=== PATIENT | female | born 1945 | race Caucasian/White ===

== ENCOUNTER 2020-07-15 19:56 | Emergency (ER) | payer MEDICARE, OTHER ==
[~2020-07-15] VITALS: Ht 160 cm; Wt 81.6 kg
[2020-07-15 20:00] VITALS: BP_SYST 149
--- NOTE | 2020-07-15 20:30 | NUR ---
Patient to ER bed to gown for evaluation. Side rails up.
--- NOTE | 2020-07-15 20:35 | NUR ---
PT PRESENTS FROM HOME WITH C/O RIGHT LEG PAIN THAT STARTED WEDNESDAY AFTERNOON WHILE WALKING WITH HER DAUGHTER. REPORTS THAT THE PAIN IS ON THE BACK OF HER UPPER LEG AND HURTS WHILE WALKING. DENIES ANY PRECIPITATING EVENT, TRAUMA. NO REDNESS, SWELLING OR WARMTH NOTED. REPORTS HX OF ANXIETY. Martha MARIANO/S DEON Addendum: 07/15/20 at 2046 by HEATHER PT PRESENTS FROM HOME WITH C/O LEFT LEG PAIN THAT STARTED WEDNESDAY AFTERNOON WHILE WALKING WITH HER DAUGHTER. REPORTS THAT THE PAIN IS ON THE BACK OF HER UPPER LEG AND HURTS WHILE WALKING. DENIES ANY PRECIPITATING EVENT, TRAUMA. NO REDNESS, SWELLING OR WARMTH NOTED. REPORTS HX OF ANXIETY. GARCÍA V/S DEON
--- NOTE | 2020-07-15 21:04 | NUR ---
ER DR. CRAIN AT THE BEDSIDE EVALUATING PT
[2020-07-15 22:24] VITALS: BP_SYST 132
--- NOTE | 2020-07-15 22:24 | NUR ---
Patient given written and verbal discharge instructions and verbalizes understanding. ER MD discussed with patient the results and treatment provided. Patient in stable condition. ID arm band removed. Rx of MOTRIN given. Patient educated on pain management and to follow up with PMD. Pain Scale 0/10. Opportunity for questions provided and answered. Medication side effect fact sheet provided.
== END 2020-07-15 22:24 | disposition home or self-care (01) ==
LOC: SED 19:56
DX: S83.412A Sprain of medial collateral ligament of left knee, initial encounter (principal); I10 Essential (primary) hypertension; E78.5 Hyperlipidemia, unspecified; E11.9 Type 2 diabetes mellitus without complications; X50.1XXA Overexertion from prolonged static or awkward postures, initial encounter; Y93.89 Activity, other specified; Y92.89 Other specified places as the place of occurrence of the external cause; Y99.8 Other external cause status
CPT/HCPCS: 73564; 99283

== ENCOUNTER 2022-08-01 23:29 | Emergency (ER) | payer MEDICARE ==
[~2022-08-01] VITALS: Ht 160 cm; Wt 81.6 kg
[2022-08-02 00:30] VITALS: BP_SYST 171
--- NOTE | 2022-08-02 00:30 | NUR ---
Placed to ER bed 05. Report given to GRICELDA Escalona.
--- NOTE | 2022-08-02 00:44 | NUR ---
Bladder scan done and it showed about 350cc of urine pt is retaining.
--- NOTE | 2022-08-02 02:30 | NUR ---
Dr. Forrester at bedside examining pt.
--- NOTE | 2022-08-02 03:15 | NUR ---
Pt to CT via [facility].
--- NOTE | 2022-08-02 03:29 | NUR ---
Pt returned from CT.
--- NOTE | 2022-08-02 03:30 | NUR ---
body technician/painter at bedside.
--- NOTE | 2022-08-02 03:43 | NUR ---
# FR Bowden catheter with use of sterile technique. Immediate return of 100 cc urine noted. Bedside drainage bag placed below level of bladder. Urine sample collected and sent to lab. Pt tolerated procedure well.
[2022-08-02 03:44] LABS: BASOPHILS # (AUTO) 0.1 K/uL (0.0-0.2); BASOPHILS % (AUTO) 0.7 % (0.0-2.0); EOSINOPHILS # (AUTO) 0.4 K/uL (0.0-0.4); EOSINOPHILS % (AUTO) 5.5 % (0.0-4.0); HEMATOCRIT 39.8 % (36-48); HEMOGLOBIN 13.8 g/dL (12.0-16.0); LYMPHOCYTES # (AUTO) 2.4 K/uL (1.0-5.5); LYMPHOCYTES % (AUTO) 30.7 % (20.5-51.5); MEAN CORPUSCULAR HEMOGLOBIN 31 pg (27-31); MEAN CORPUSCULAR HGB CONC 35 % (32-36); MEAN CORPUSCULAR VOLUME 89 fL (79.0-98.0); MONOCYTES # (AUTO) 0.5 K/uL (0.0-1.0); NEUTROPHILS # (AUTO) 4.4 K/uL (1.8-7.7); NEUTROPHILS % (AUTO) 57.1 % (40.0-70.0); PLATELET COUNT (AUTO) 187 K/uL (130-430); RED BLOOD CELL COUNT(AUTO) 4.48 MIL/uL (4.2-6.2); RED CELL DISTRIBUTION WIDTH 13.8 % (9.0-15.0); WHITE BLOOD COUNT (AUTO) 7.8 K/uL (4.8-10.8)
--- NOTE | 2022-08-02 03:46 | NUR ---
Urine collected and sent to lab.
[2022-08-02 04:13] LABS: ANION GAP 6 (5-15); CALCIUM 9.6 mg/dL (8.4-11.0); CHLORIDE 104 mmol/L (98-107); CREATININE 0.74 mg/dL (0.55-1.30); GLUCOSE 141 mg/dL (70-99); TOTAL BILIRUBIN 0.5 mg/dL (0.0-1.0); UREA NITROGEN, BLOOD 13 mg/dL (8-21)
[2022-08-02 04:14] LABS: ALANINE AMINOTRANSFERASE 36 U/L (12-78); ASPARTATE AMINOTRANSFERASE 24 U/L (10-37); LIPASE 69 U/L (73-393)
[2022-08-02 04:15] LABS: ALBUMIN 3.8 g/dL (3.4-4.8)
[2022-08-02 04:34] LABS: BILIRUBIN,URINE NEGATIVE (NEGATIVE); BLOOD, URINE NEGATIVE (NEGATIVE); CLARITY/URINE CLEAR (CLEAR); COLOR,URINE YELLOW (YELLOW); GLUCOSE,URINE NEGATIVE (NEGATIVE); KETONES,URINE NEGATIVE (NEGATIVE); LEUKOCYTE ESTERASE ,URINE NEGATIVE (NEGATIVE); NITRITE, URINE NEGATIVE (NEGATIVE); PH,URINE 5.5 (5.0-8.0); PROTEIN URINE NEGATIVE (NEGATIVE); UROBILINOGEN,URINE 0.2 (0.2-1.0)
--- NOTE | 2022-08-02 05:41 | NUR ---
Removed cisneros cath. 400cc emptied urine output.
--- NOTE | 2022-08-02 06:07 | NUR ---
Patient given written and verbal discharge instructions and verbalizes understanding. ER MD discussed with patient the results and treatment provided. Patient in stable condition. ID arm band removed. Patient educated on pain management and to follow up with PMD. Pain Scale 0/10. Opportunity for questions provided and answered. Medication side effect fact sheet provided.
[2022-08-02 06:08] VITALS: BP_SYST 119
== END 2022-08-02 06:07 | disposition home or self-care (01) ==
LOC: SED 23:29
DX: N32.0 Bladder-neck obstruction (principal); R33.9 Retention of urine, unspecified; R35.0 Frequency of micturition; N28.1 Cyst of kidney, acquired; N81.9 Female genital prolapse, unspecified; E11.9 Type 2 diabetes mellitus without complications; I10 Essential (primary) hypertension; E78.5 Hyperlipidemia, unspecified; Z79.899 Other long term (current) drug therapy
CPT/HCPCS: 36415; 76376; 80053; 81003; 83690; 85025; 99284